=== PATIENT | male | born 1985 | race Caucasian/White ===

== ENCOUNTER 2020-05-14 16:26 | Outpatient (CLI) | payer OTHER ==
--- NOTE | 2020-05-15 09:00 | MRI Report ---
PROCEDURE: Knee RT W/O INDICATIONS: RT KNEE PAIN TECHNIQUE: Noncontrast sagittal PD fast spin echo and T2 fast spin echo with fat saturation, sagittal 3-D gradie nt sequence with fat saturation; coronal T1 spin echo and PD fast spin echo with fat saturation, and axial PD fast spin echo with fat saturation through the knee. COMPARISON: None. FINDINGS: Image quality: Excellent. Menisci: Linear oblique high T2 signal intensity traverses the posterior horn medial meniscus, demons trating superior and inferior articular surface extension. Lateral meniscus is intact. Cruciate ligaments: There is full-thickness chronic tearing of the anterior cruciate ligament. Injection Mold Tooling Technician ior cruciate ligament is intact. Medial structures: The medial collateral ligament appears intact. Visualized portions of the pes ans erinus tendons appear normal. No abnormal bursal fluid. Lateral structures: The lateral collateral ligament, long and short heads of the biceps femoris tend on appear intact. The popliteus tendon appears normal. Iliotibial band appears normal. Anterior structures: The quadriceps and patellar tendons appear intact. Patellar alignment is deepika l. No femoral trochlear dysplasia or ventral trochlear prominence. No edema in the infrapatellar fa t pad. Bones and cartilage: No bone marrow contusions or fractures. There is mild tricompartmental periarti cular osteophyte formation. There is moderate articular cartilage loss diffusely overlying the weight bearing aspects of the medial femoral condyle and medial tibial plateau. Moderate user cartilage loss diffusely overlies the weightbearing aspects of the lateral femoral condyle and lateral tibial plate au. Joint space: There is a small knee joint effusion and a trace Elliott?s cyst. Normal appearing synovi al plicae are incidentally noted. IMPRESSION: 1. Chronic full-thickness anterior cruciate ligament tear. 2. Medial meniscal tear. 3. Medial and lateral compartment articular cartilage loss. Reviewed by: Ginna Cornejo MD on 05/15/2020 8:59 AM PDT Approved by: Ginna Cornejo MD on 05/15/2020 8:59 AM PDT Station ID: [id number]
== END 2020-05-14 16:27 | disposition home or self-care (01) ==
LOC: DI 16:26
PROVIDERS: ATTEND Orthopaedic Surgery
DX: S83.511A Sprain of anterior cruciate ligament of right knee, initial encounter (principal); S83.241A Other tear of medial meniscus, current injury, right knee, initial encounter; M94.261 Chondromalacia, right knee; M71.21 Synovial cyst of popliteal space [Baker], right knee; M25.461 Effusion, right knee

== ENCOUNTER 2020-07-24 09:11 | Day surgery (SDC) | payer OTHER ==
[2020-07-24] MEDS ORDERED: CLINDAMYCIN 600 MG/50 ML 50 ML IV ONE (09:13)
[2020-07-24] MEDS ORDERED: LACTATED RINGERS 1,000 ML IV ONE (09:26)
--- NOTE | 2020-07-24 09:42 | ANESTHESIA ---
Pre-Anesthesia VS, & Labs - Diagnosis Right knee ACL and meniscus tears - Procedure right knee arthroscopy, ACL Reconstruction Vital Signs: Temp Pulse Resp BP Pulse Ox 36.1 C L 71 19 144/91 H 98 07/24/20 09:15 07/24/20 09:15 07/24/20 09:15 07/24/20 09:15 07/24/20 09:15 Height 5 ft 9 in Weight (kg) 86.18 kg - NPO >8 hours - Lab Results Lab results reviewed: Yes Home Medications and Allergies Home Medications: Ambulatory Orders No Known Home Medications 07/18/20 No Known Home Medications 07/18/20 Allergies/Adverse Reactions: Allergies Allergy/AdvReac Type Severity Reaction Status Date / Time Penicillins Allergy Anaphylaxis Verified 07/18/20 09:03 Anes History & Medical History - Anesthetic History Anesthesia Complications: reports: No previous complications Family history of Anesthesia Complications: Denies Family history of Malignant Hyperthermia: Denies - Medical History Cardiovascular: reports: None Pulmonary: reports: None Gastrointestinal: reports: None Urinary: reports: None Musculoskeletal: reports: Other Endocrine/Autoimmune: reports: None Skin: reports: None Smoking Status: Current every day smoker (vape pen use) - Surgical History General: Other Exam General: Alert, Oriented x3, Cooperative, No acute distress Mouth Openin Fingerbreadth Neck Mobility: Normal Mallampati classification: I Respiratory: Lungs clear, Normal breath sounds, No respiratory distress, No accessory muscle use Cardiovascular: Regular rate, Normal S1, Normal S2, No murmurs Plan Anesthesia Type: General, Adductor Block Regional Block: Per Surgeon's request for Post Op pain control Consent for Procedure(s) Verified and Reviewed: Yes Code Status: Attempt Resuscitation ASA classification: 2-Mild systemic disease Is this case an emergency?: No
[2020-07-24] MEDS ORDERED: EPINEPHrine 1 MG/ML AMP ONE (09:50)
[2020-07-24] MEDS ORDERED: ePHEDrine 50 MG/ML VIAL IVP PRN (10:17)
[2020-07-24] MEDS ORDERED: HYDROmorphone 0.5 MG/0.5 ML SYRINGE IVP PRN (10:17)
[2020-07-24] MEDS ORDERED: NALOXONE 0.4 MG/ML VIAL IVP PRN (10:17)
[2020-07-24] MEDS ORDERED: ONDANSETRON 4 MG/2 ML VIAL IVP PRN ×2 (10:17→13:44)
[2020-07-24] MEDS ORDERED: fentaNYL 100 MCG/2 ML VIAL IVP PRN (10:17)
[2020-07-24] MEDS ORDERED: METOCLOPRAMIDE 10 MG/2 ML VIAL IVP PRN (10:17)
[2020-07-24] MEDS ORDERED: ATROPINE ABBOJECT 1 MG/10 ML SYRINGE IVP PRN (10:17)
[2020-07-24] MEDS ORDERED: MORPHINE 2 MG/ML CARPUJECT IVP PRN (10:17)
[2020-07-24] MEDS ORDERED: PROPOFOL 200 MG/20 ML VIAL IVP ONE (11:00)
[2020-07-24] MEDS ORDERED: ONDANSETRON 4 MG/2 ML VIAL IVP ONE (11:00)
[2020-07-24] MEDS ORDERED: DEXAMETHASONE 4 MG/ML VIAL IVP ONE (11:00)
[2020-07-24] MEDS ORDERED: MIDAZOLAM 2 MG/2 ML VIAL IVP ONE (11:00)
[2020-07-24] MEDS ORDERED: LIDOCAINE-MPF 2% 5 ML VIAL IM ONE (11:00)
[2020-07-24] MEDS ORDERED: LACTATED RINGERS 1,000 ML IV SCH (11:00)
[2020-07-24] MEDS ORDERED: fentaNYL 100 MCG/2 ML VIAL IVP ONE (11:00)
[2020-07-24] MEDS ORDERED: EPINEPHrine 1 MG/ML AMP IVP ONE (12:45)
[2020-07-24] MEDS ORDERED: BUPIVACAINE 0.25% PF 30 ML VIAL ONE (13:32)
[2020-07-24] MEDS ORDERED: LACTATED RINGERS 800 ML IV ONE (13:38)
[2020-07-24] MEDS ORDERED: oxyCODONE 5 MG TABLET PO PRN (13:44)
[2020-07-24] MEDS: HYDROmorphone 1 MG/ML CARPUJECT ONE ×3 (13:52→14:10)
[2020-07-24] MEDS ORDERED: KETOROLAC 30 MG/ML VIAL IVP ONE (14:00)
[2020-07-24] MEDS ORDERED: ACETAMINOPHEN 1,000 MG/100 ML 100 ML IV ONE ×2 (14:01→14:07)
--- NOTE | 2020-07-24 14:04 | OPERATIVE REPORT ---
Operative Report - Other Other Information/Narrative: Date of Surgery: 24 July 2020 Pre-Op Diagnosis: Right ACL tear. Right medial meniscus tear Procedure: Arthroscopic assisted right ACL reconstruction with hamstring autograft. Right medial meniscus partial excision. Right medial tibial plateau chondroplasty. Right knee arthroscopic loose body removal Postop Diagnosis: Same as above. Add knee osteoarthritis Primary Surgeon: Kevin Gomez Secondary Surgeon: Johnson Vásquez Complications: None Tourniquet Time: 106 minutes at 250 mmHg EBL: 25 cc Implants: Arthrex Tightrope. Arthrex 9 mm Graftbolt Graft & Tunnel Size: 8 mm Postoperative Protocol: Standard. Indication For Surgery: 34-year-old male sustained an injury to the right knee in 2013 and was later diagnosed with an ACL tear. He does not trust of the knee and has been unable to play cutting sports. He desires to return to cutting sports and to be more active. The risks, benefits, and alternatives were discussed. Risks include pain, bleeding, infection, damage to nearby structures and cartilage, lack of symptom relief, need for further surgery, DVT, PE, stroke, and . Written consent was obtained. Examination Under Anesthesia: ROM equal to the contralateral side. Stable dial at 30 & 90 degrees. Stable to varus and valgus stressing at 0 & 30 degrees. Abnormal Mary Ann. Abnormal Pivot shift. No mechanical sensation Diagnostic Arthroscopy: 1 loose body was found in the lateral manoj-joint and it was removed. Synovium was exuberant and a medial plica was present, this was excised. Patella cartilage normal. Trochlear cartilage normal for age. Medial femoral condyle cartilage grade 1 with some grade 2 changes. Medial tibial plateau cartilage grade 1 changes throughout with a large resection of grade 2 fraying and 1 area of grade 3 with a loose flap that was excised. Medial meniscus had a large tear with a fragment that had torn from the body and was still attached to the anterior horn. There was additionally tearing on the undersurface from the posterior horn body and anterior horn. There is additionally a vertical tear in the white white zone. All unstable fragments were debrided. ACL was torn. PCL was normal. Lateral femoral condyle cartilage had grade 1 changes. Lateral tibial plateau cartilage had grade 1 changes. Lateral meniscus showed some superficial fraying in the posterior horn but there were no unstable tears. Procedure in Detail: The patient was met in the pre-operative hold area on the day of the procedure. The operative extremity was signed and questions were answered. The patient was brought to the operating room and a general anesthetic was administered. Supine position was used and bony prominences were padded. An examination under anesthesia was performed. Standard prepping and draping was performed. A time out confirmed patient identification, laterality, procedure, allergies, antibiotics, and images. An Esmarch was used to exsanguinate the limb and the tourniquet was elevated to 250 mmHg. Hamstring Graft Erbacon: A 4 cm incision was made over the insertion of the pes anserine. Hemostasis was obtained with electrocautery. Dissection was brought down to the sartorial fascia and this was cleared off with a sponge. A partial thickness incision was made in the sartorial fascia 5mm proximal to and in line with the gracilis tendon, taking care to not disrupt the superficial medial collateral ligament. A full thickness longitudinal incision was made down to bone, releasing the pes anserine. I then identified the interval between the hamstring tendons and the medial collateral ligament. This interval was exploited and the hamstrings were viewed on the underside of the sartorial fascia. A right angle clamp was used to separate the gracilis tendon from the sartorial fascia and it was released sharply with a knife. I then whip stitched the tendon with 4 bites up and down. I then freed the tendon from all fascial attachments back to the hiatus. A closed tendon stripper was then used to harvest the gracilis tendon and it was brought to the back table. The procedure was repeated for the semitendinosis tendon. The graft was then prepped on the back table. A standard diagnostic arthroscopy of the knee was performed through anterolateral and anteromedial portal sites. The anteromedial portal was created under direct visualization after localizing with a spinal needle. The findings can be found above. I then proceeded to use a biter and shaver to debride all unstable portions of the medial meniscus. I then used a biter and shaver to debride the unstable cartilage of the medial tibial plateau. I then used the shaver from the medial plica until it was clear. During the process of the diagnostic arthroscopy and a small loose body was found and it was excised. ACL Prep: I then used a sucker shaver and a radiofrequency ablation wand to release all residual ACL tissue off of the lateral wall. I debrided all excess tissue from the notch. I placed the camera into the anteromedial portal and ensured that I was cleared all the way to the back wall. I then brought the flip cutter aiming device through the lateral portal. I positioned into the central position of the [place] ACL footprint on the femur ensuring to leave a 2 mm back wall and stay off of the distal articular cartilage. Once satisfied with the position, the bullet was brought down to the skin and a george was made. A 3 cm longitudinal skin incision was made and the IT band was split in line with its fibers. A sen rake was used to retract the IT band posterior and the bullet was brought down to the lateral femoral wall. An appropriately sized flip cutter was then drilled into the notch. It was then flipped and the lateral wall was scored confirming an appropriate position. The bullet was then malleted into place and a 25mm femoral tunnel was drilled. Bony debris was removed with a shaver. A fiberstick suture was brought into the joint, retrieved out the lateral portal, and clamped to itself. I then identified the ACL footprint on the tibia and set the tibial guide at 55. I aimed to have the guide pin come out 7 mm anterior to the PCL and in line with the posterior borders of the anterior horn of the lateral meniscus, on the lateral border of the medial tibial spine. The guidewire was then brought into the joint. The knee was then straightened to confirm that it would not impinge on the notch. The guidewire was clamped with a Jose. The skin was then protected and the tibial tunnel was drilled with the appropriate sized reamer. The fiberwire was then brought through the tibial tunnel. The graft was then loaded onto the tightrope and the graft was marked at 25mm. The graft was then passed and the button was brought out of the skin over the lateral femur. I then guided the button back down beneath the IT band and visualized it on the lateral femoral cortex. I then held tension on the graft and advanced it by pulling on the white tightrope sutures. The marking on the graft disappeared into the femoral tunnel and seated nicely. The knee was then cycled 20 times with tension on the graft. I then placed a large bump under the distal femur the pulled on all 4 limbs of the graft and placed a posterior drawer on to the proximal tibia. The guidewire was then placed into the tibia and the tunnel was dialated until a tight fit was seen. The graftbolt was then placed. I then brought the arthroscope back into the joint and probed the graft finding it to have excellent tension. Final images were taken. Excess graft was then cut and the wounds were irrigated copiously. I closed the sartorial fascia and IT band with 0 Vicryl, the subdermal tissues with 2 O Vicryl, and the skin with running Monocryl. Steri-Strips were applied and 20 cc of 0.5% Marcaine was placed under the incisions. The tourniquet was then dropped and a sterile dressing was placed. The ROM brace was placed and was locked out in full extension. He was awakened and transferred to the recovery room.
[2020-07-24] MEDS ORDERED: KETOROLAC 15 MG/ML VIAL ONE (14:08)
--- NOTE | 2020-07-24 14:10 | ANESTHESIA POST OP EVALUATION ---
Anesthesia Post Eval - Post Anesthesia Eval Vitals: Last Vital Signs Temp 36.6 C 07/24/20 14:05 Pulse 72 07/24/20 14:05 Resp 14 07/24/20 14:05 BP 148/104 H 07/24/20 14:05 Pulse Ox 100 07/24/20 14:05 CV Function Including HR & BP: positive: Stable Pain Control: positive: Satisfactory Nausea & Vomiting: positive: Negative Mental Status: positive: Baseline Respiratory Status: Airway Patent Hydration Status: Satisfactory Anesthesia Complications: positive: None
[2020-07-24] MEDS ORDERED: oxyCODONE 5 MG TABLET ONE (14:50)
[2020-07-24 15:27] VITALS: BP 149/87
== END 2020-07-24 09:12 | disposition home or self-care (01) ==
LOC: SDS 09:11
PROVIDERS: ATTEND Orthopaedic Surgery
PROC: 0LBL0ZZ Excision of Right Upper Leg Tendon, Open Approach (ICD-10-PCS; 2020-07-24)
PROC: 0SBC4ZZ Excision of Right Knee Joint, Percutaneous Endoscopic Approach (ICD-10-PCS; 2020-07-24)
PROC: 0MRN47Z Replacement of Right Knee Bursa and Ligament with Autologous Tissue Substitute, Percutaneous Endoscopic Approach (ICD-10-PCS; principal; 2020-07-24 10:30)
DX: S83.511A Sprain of anterior cruciate ligament of right knee, initial encounter (principal); S83.241A Other tear of medial meniscus, current injury, right knee, initial encounter; M67.51 Plica syndrome, right knee; F17.290 Nicotine dependence, other tobacco product, uncomplicated; M17.11 Unilateral primary osteoarthritis, right knee

== ENCOUNTER 2020-10-09 14:33 | Outpatient (CLI) | payer OTHER ==
--- NOTE | 2020-10-09 14:50 | SLEEP CARE CONSULTATION ---
Information from patient questionnaire entered by Melissa Kunz. I have reviewed and concur with the information entered by Melissa Kunz. This document represents the service I personally performed and the decisions made by me, Rafy Dallas MD, [facility]. History of Present Illness Service Date and Time: 10/09/2020 1433 Reason for Visit: New patient Chief Complaint: reports: Unrefreshed sleep, Snoring, Observed pauses in breathing, Fatigue, Frequent awakenings at night Date of Onset: 5 years or so Usual bedtime: 10 pm Time it takes to fall asleep: 10-15 minutes Snores at night: Yes Observed to quit breathing while asleep: Yes Sleeps alone due to snoring: No Number of times waking at night: 2-3 Reasons for waking at night: reports: Other (unsure) Toss, Turn, or Twitch while sleeping: Yes Recalls having dreams: No (sometimes) Usually gets out of bed at: 6 am Feels refreshed in the morning: No (for at least 30 minutes) Morning headache: No Sleepy or fatigued during the day: Yes Ever fallen asleep while driving: No Takes day naps: Yes (sometimes) Dreams during day naps: No Prior sleep studies: No Additional HPI information: I had the pleasure of seeing Mr. Dwyer today regarding the possibility of him having a sleep disorder. As you know, he is a 34 year old gentleman who complains of loud snore and his has seen him quit breathing while asleep. The patient tells me that he normally goes to bed around 10 pm, and it takes him approximately 10 - 15 minutes to fall asleep. His can still sleep in the same bed. He can recall waking up on the average of 2 - 3 times during the night. Most of the time he wakes up because of no apparent reason. He has awakened occasionally because of his own snoring, but not choking, or having to gasp for air. There is a lot of tossing and turning in his sleep. No somniloquy (sleep talking) or somnambulism (sleep walking). Generally there is no recollection of dreams. In the morning he usually gets up out of the bed around 6 a.m. not feeling refreshed nor rested. He usually does not have a morning headache. During the day he complains of feeling sleepy and fatigued. He has never fallen asleep while driving. He usually does not take naps during the day. Upon falling asleep during the day he denies having vivid dreams. He has never had sleep paralysis, experienced cataplexy or symptoms of restless leg syndrome. He denies having impaired concentration during the day. 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 Patient is and lives in [place]. Have you smoked in the past 12 months: Yes (vape) Cigarettes per day (20/pack): 5 (up to half a pack) Years of smokin Smoking Pack Years: 0.8 Alcohol use: Yes Alcohol amount and frequency: 2-3 beers 1-2 times a week Caffeine use: Yes Caffeine amount and frequency: 1 cup of coffee in the morning, energy drink 2-3 times a week Family History Family history of sleep disordered breathing: No Allergies and Home Medications Drug allergies reviewed: Yes (penicillin) Home medication list reviewed: Yes (none) Review of Systems Weight gain over past 5 years: 15-20 Cardiovascular: denies: high blood pressure, palpitations, chest pain, irregular heart rate or pulse, leg or foot swelling, have to sleep sitting up, other Respiratory: denies: shortness of breath, wheeze, sputum production, chronic cough, other Gastrointestinal: denies: heartburn, difficulty swallowing, nausea, vomitting, diarrhea, abdominal pain, other Urinary: denies: incontinence, frequency, urgency, impotence, other Neurological: denies: headaches, seizure, head trauma, disorientation, speech dysfunction, gait or balance problems, fainting or unconsciousness, other Psychiatric: denies: Attention Deficit Hyperactivity, anxiety, depression, mood disorder, claustrophobia, other Ear/Nose/Throat: reports: wisdom teeth removed Endocrine: denies: thyroid disease, history of goiter, sluggishness, too hot or cold, excessive thirst, increased appetite, increased urination, unexplained weakness, other Musculoskeletal: reports: joint swelling (knee due to surgery) Immunologic: denies: sneezing, rash, itching, allergies to food or environment, other Physical Exam Height: 5 ft 9 in Weight: 195 lb Body Mass Index: 28.8 BMI Classification: Overweight Impression and Plan IMPRESSION: 1. Obstructive Sleep Apnea-Hypopnea Syndrome, as suggested by history of loud and irregular snoring, observed cessation of breath while asleep, frequent awakenings during the night, unrefreshed sleep, and daytime hypersomnolence. Narrow oropharynx and obesity are common predisposing factors for obstructive sleep apnea-hypopnea syndrome. Pathophysiology of sleep-disordered breathing was discussed. I recommend proceeding to polysomnography to confirm the diagnosis and to assess severity. If he has significant sleep disordered breathing, a manual CPAP titration study will also be performed to find the optimal treatment pressure. I informed the patient of what the sleep studies involve and after some discussion, he agreed to proceed. Plan: 1. Schedule an in-laboratory polysomnography + manual CPAP titration study 2. Avoid long distance driving or when feeling sleepy. 3. Avoid alcohol, sedative and muscle relaxant around bedtime. 4. Attempt to lose weight. 5. Return in 1 to 2 weeks after the study to discuss results and initiate therapy. Visit Type: Telehealth Video Video Type: D[employer]imWig[employer] Patient Location: Home Location of Provider: Office Patient agrees and consents to this telehealth visit type: Yes Patient agrees to have their insurance billed: Yes Time Spent with Patient (minutes): 15 Provider Statement: I spent 100% of the Telehealth Video Call with the patient with greater than 50% spent counseling the patient and coordination of care.
== END 2020-10-09 14:34 | disposition home or self-care (01) ==
LOC: SC 14:33
PROVIDERS: ATTEND Internal Medicine Pulmonary Disease
DX: R06.83 Snoring (principal); R06.81 Apnea, not elsewhere classified; G47.8 Other sleep disorders; G47.10 Hypersomnia, unspecified; E66.3 Overweight; Z68.28 Body mass index [BMI] 28.0-28.9, adult; F17.210 Nicotine dependence, cigarettes, uncomplicated

== ENCOUNTER 2020-10-15 20:26 | Outpatient (CLI) | payer OTHER | END 2020-10-15 20:27 | disposition home or self-care (01) | LOC: SC 20:26 | PROVIDERS: ATTEND Internal Medicine Pulmonary Disease | DX: G47.33 Obstructive sleep apnea (adult) (pediatric) (principal); E66.3 Overweight; Z68.28 Body mass index [BMI] 28.0-28.9, adult | CPT/HCPCS: 95810 ==

== ENCOUNTER 2020-10-24 07:42 | Outpatient (CLI) | payer OTHER ==
--- NOTE | 2020-10-24 08:18 | SLEEP CARE CONSULTATION ---
Information from patient questionnaire entered by Melissa Kunz. I have reviewed and concur with the information entered by Melissa Kunz. This document represents the service I personally performed and the decisions made by , Ashly Balbuena ARNP. History of Present Illness Service Date and Time: 10/24/2020 0742 Current [place] Sleepiness Scale score: 14 Additional HPI information: MOIRA MACHADO returns for follow up and results of the recently performed polysomnography. I explained the pathophysiology behind obstructive sleep apnea. We then spent quite a bit of time discussing different treatment options. For mild obstructive sleep apnea, surgery and oral appliance are alternatives to nasal CPAP therapy but in moderate or severe cases, nasal CPAP is the most effective and reliable treatment. Because apnea is primarily in supine position, then positional management therapy could be effective. Methods discussed such as positioning with pillows, using a T-shirt with tennis balls in the back, and shown commercial products that have a pillow format on back to prevent supine sleep. I reviewed the impact of weight changes on sleep apnea and strongly recommended losing weight. After some discussion, the patient opted to go with positional therapy while he considers CPAP therapy. I explained how CPAP machine works with sample devices [employer]pir[employer]oji Dreamstation and [employer] [id number] and what to expect when using the machine. Using CPAP every night in order to get used to it was emphasized. Patient advised to put CPAP mask on before getting into bed so as not to fall asleep without CPAP. To assist acclimation to CPAP use, it could also be used for a short time during day while reading or watching TV. The patient was instructed to call the CPAP supplier to discuss any mechanical problem that may occur. If the mask given is uncomfortable or is difficult to keep on through the night even with adjustment, contact the CPAP supplier as many will replace with another mask style if notified before 30 days. If snoring or perceives is not getting enough air or too much air from the machine, notify this office. [facility] patient education PAP tips and Non Pap treatment pamphlets reviewed and given to patient. Patient was cautioned about risks of drowsy driving until sleepiness symptoms resolve. Sleep Study - Results Type of Sleep Study: Polysomnography Prior sleep studies: No Polysomnography/Home Sleep Study results: IMPRESSION: The quality of the study is good. The patient had minimally reduced sleep efficiency. Except for mild sleep fragmentation, the sleep architecture was normal. Respiratory monitoring showed mild obstructive sleep apnea-hypopnea (AHI = 7.5) associated with frequent arousals, oxyhemoglobin desaturation and mild hypoxia (kimani oxygen saturation of 87%). The respiratory events occurred almost exclusively during supine sleep (supine AHI = 22.3; non-supine = 0.22). Snore was moderate to loud in intensity. There was no significant periodic leg movement of sleep. Cardiac rhythm was normal sinus rhythm without significant arrhythmia. No abnormal behavior (parasomnia) observed during the night. Allergies and Home Medications Drug allergies reviewed: Yes (penicillins) Home medication list reviewed: Yes (no changes) Review of Systems Review of systems same as previous: Yes (no changes) Physical Exam Heart Rate: 69 O2 Saturation: 99 Height: 5 ft 9 in Weight: 196 lb Body Mass Index: 28.9 BMI Classification: Overweight Impression and Plan 1. Obstructive Sleep Apnea-Hypopnea Syndrome, mild, with lowest oxygen saturation of 87%. Obviously this is the cause of the patients symptoms of unrefreshed sleep, and excessive daytime sleepiness. Positive pressure therapy could benefit his overall health and reduce cardiovascular or cerebrovascular adverse events. Patient would like to take some time to decide of whether he would like to try the CPAP machine. In the meantime, I encouraged him to try positional therapy for which he was agreeable. Since patients apnea is p rimarily in supine position, patient advised to try positional therapy and agreed with plan. He is also advised to lose weight as this will reduce snoring and apnea. An oral appliance can also be used for snoring but often is not covered by insurance. Follow up is scheduled for three month to check effectiveness since he will be out of town in [facility] in November. * Positional therapy * Attempt to lose weight. * Avoid alcohol consumption near bedtime. * Avoid supine sleep. * The patient is again cautioned about driving until sleepiness completely resolves. * Return in 3 months. I will assess response to therapy and compliance at that time. Counseling Topics: Weight loss health impact Visit Type: In Office Time Spent with Patient (minutes): 16 Provider Statement: I spent 100% of the Face to Face Visit with the patient with greater than 50% spent counseling the patient and coordination of care.
== END 2020-10-24 07:43 | disposition home or self-care (01) ==
LOC: SC 07:42
PROVIDERS: ATTEND Nurse Practitioner Family
DX: G47.33 Obstructive sleep apnea (adult) (pediatric) (principal); E66.3 Overweight; Z68.28 Body mass index [BMI] 28.0-28.9, adult
CPT/HCPCS: 99212; 99213

== ENCOUNTER 2020-12-20 13:58 | Outpatient (CLI) | payer OTHER ==
--- NOTE | 2020-12-20 14:27 | SLEEP CARE CONSULTATION ---
Information from patient questionnaire entered by Brayden Pearson. I have reviewed and concur with the information entered by Brayden Pearson. This document represents the service I personally performed and the decisions made by , Ashly Balbuena ARNP. History of Present Illness Service Date and Time: 12/20/2020 1358 Previous diagnosis: Mild, Obstructive Sleep Apnea-Hypopnea Syndrome AHI: 7.5 Reason for follow up: other (2-month followup - start CPAP) Prior sleep studies: Yes Year and Where: 2019 [facility] Type of Sleep Study: Polysomnography HPI additional information: MOIRA MACHADO was diagnosed to have mild, AHI 7.5, obstructive sleep apnea- hypopnea syndrome and returned today for two month follow-up of positional therapy and to start CPAP therapy. Subjective Current [place] Sleepiness Scale score: 13 Allergies and Home Medications Drug allergies reviewed: Yes (penicillins) Home medication list reviewed: Yes (no changes) Review of Systems Review of systems same as previous: Yes (no changes) Physical Exam Heart Rate: 97 O2 Saturation: 98 Height: 5 ft 9 in Weight: 194 lb Body Mass Index: 28.6 BMI Classification: Overweight Impression and Plan 1. Obstructive Sleep Apnea-Hypopnea Syndrome, mild. He has been using positional therapy. He found that no matter what he tried he was unable to consistently stay off of his back while sleeping. He has returned today to ask to start CPAP therapy. Positive pressure therapy could benefit his overall health and reduce risks of cardiovascular and cerebrovascular adverse events. The patient will be started on nasal autoCPAP therapy with pressure set at 4-15 cmH2O. A manual titration study will be completed if unable to find optimal treatment pressure with office adjustments. Compliance guidelines also reviewed. A copy of compliance guidelines will be given for reference at check out. Because the apnea is more severe supine, I instructed to avoid sleeping supine using pillow positioning until able to start CPAP use. * Nasal auto CPAP therapy, pressure at 4-15 cm H2O. * Attempt to lose weight. * Avoid alcohol consumption near bedtime. * Avoid supine sleep until using CPAP. * The patient is again cautioned about driving until sleepiness completely resolves. * Return one month after CPAP obtained. I will assess response to therapy and compliance at that time. Counseling Topics: Weight loss health impact Visit Type: In Office Time Spent with Patient (minutes): 16 Provider Statement: I spent 100% of the Face to Face Visit with the patient with greater than 50% spent counseling the patient and coordination of care.
== END 2020-12-20 13:59 | disposition home or self-care (01) ==
LOC: SC 13:58
PROVIDERS: ATTEND Nurse Practitioner Family
DX: G47.33 Obstructive sleep apnea (adult) (pediatric) (principal); E66.3 Overweight; Z68.28 Body mass index [BMI] 28.0-28.9, adult
CPT/HCPCS: 99212

== ENCOUNTER 2024-06-24 08:27 | Outpatient (CLI) | payer OTHER ==
--- NOTE | 2024-06-24 10:23 | Ultrasound Report ---
PROCEDURE: Chest INDICATIONS: SCAPULA MASS TECHNIQUE: Real-time scanning was performed, and a suitable site was marked by the strip catcher for thoracentesis to be performed by the referring clinician. COMPARISON: None. Findings and impression: In the area of clinical concern in the right upper back adjacent to the scapula: There is a 3.8 x 1.2 x 5.2 cm subcutaneous isoechoic circumscribed mass, that may represent a lipoma. Clinical followup i s recommended. If there is new or worsening clinical concern, reimaging with ultrasound or MRI or ariel pling could be obtained. Reviewed by: Sterling Shane MD on 06/24/2024 10:21 AM PDT Approved by: Sterling Shane MD on 06/24/2024 10:21 AM PDT Station ID: [id number]
== END 2024-06-24 08:28 | disposition home or self-care (01) ==
LOC: DI 08:27
DX: R93.89 Abnormal findings on diagnostic imaging of other specified body structures (principal)